=== PATIENT | female | born 1990 | race Caucasian/White ===

== ENCOUNTER 2016-06-15 20:50 | Emergency (ER) | payer MEDICAID ==
[~2016-06-15] VITALS: Ht 157.5 cm; Wt 55.3 kg
[~2016-06-15 20:50] MED LIST: CLIN300C86 PO; ESCI10TA47 PO; HYDR-4074 PO; IBUP-1547 PO; OXYC1TAB66 PO
--- OUTSIDE RECORDS SUMMARY | 2016-06-15 20:55 | XMS REPORT | Continuity of Care Document ---
Author Author [facility] Address Unknown Phone Unavailable Allergies Medications Problems Date Dx Coded Attending Type Code Diagnosis Diagnosed By 06/26/2015 MELISSA LAUREANO LMSW THERAPIST, [place] 296.80 Bipolar Disorder NOS Procedures Results Encounters ACCT No. Visit Date/Time Discharge Status Pt. Type Provider Facility Loc./Unit Complaint [id number] 06/26/2015 00:00:00 10/27/2015 00: 00:00 DIS Outpatient MELISSA LAUREANO LMSW THERAPISTKELLY
--- OUTSIDE RECORDS SUMMARY | 2016-06-15 20:55 | XMS REPORT | Continuity of Care Document ---
Author Author [facility] Organization [facility] Address Unknown Phone Unavailable Support Name Relationship Address Phone ROGER BARRY MD Caregiver [address] [place] [phone] NORAH BALLESTEROS MD Caregiver [address] [place] [address] ESTEBNA BYNUM Next Of Kin [address] [place] [address] C Insurance Providers Payer Name Policy Number Subscriber Name Relationship Self Pay Lynda Bynum 16 Self Problems Medical Problems Problem Onset Date Status contusions--scalp, left arm, right ribs Unknown Active Pharyngitis Unknown Active ABSCESS L ARM Unknown Active Toothache Unknown Active Medications Medication Dose Route Sig Days/Qty Instructions Order Date Discontinued Date Status [Bc] 07/28/09 09/03/10 Discontinued [Norplant] ID 01/14/10 09/03/10 Discontinued Hydrocodone Bit/Acetaminophen NEEDED 01/15/10 09/03/10 Discontinued [Bc Implant] 07/05/10 01/07/13 Discontinued Amoxicillin 1 Cap PO THREE TIMES A DAY 10 Days 12/14/13 Active [No Know Meds] 12/14/13 Active Social History Social History Problem Response Recorded Date/Time Smoking Status Current every day smoker 12/14/2013 9:24pm When did patient START smoking? 2004 12/14/2013 9:24pm Hx Substance Use Y meth and cocaine; NONE X6 MONTHS 12/14/2013 9:24pm Hx Alcohol Use No 12/14/2013 9:24pm Query Response Start Date Stop Date Smoking Status Current every day smoker Hospital Discharge Instructions No hospital discharge instructions. Plan of Care No plan of care. Functional Status Query Response Date Recorded Physical Hygiene Self December 14, 2013 9:24pm Disabilities None December 14, 2013 9:24pm Devices Used None December 14, 2013 9:24pm Dressing Self December 14, 2013 9:24pm Ambulation Self December 14, 2013 9:24pm Diet Self December 14, 2013 9:24pm Mental Status Alert Oriented December 14, 2013 9:24pm Disabilities None December 14, 2013 9:24pm Devices Used None December 14, 2013 9:24pm Physical Hygiene Self December 14, 2013 9:24pm Dressing Self December 14, 2013 9:24pm Ambulation Self December 14, 2013 9:24pm Diet Self December 14, 2013 9:24pm Allergies, Adverse Reactions, Alerts Allergen Type Severity Reaction Status Last Updated diphenhydramine HCl Allergy Mild ITCHING Active 12/14/13 Penicillin Allergy Mild RASH Active 12/14/13 Morphine Allergy Mild ITCHING Active 12/14/13 Immunizations Name Given Type Hx Influenza Vaccination No Historical Hx Pneumococcal Vaccination No Historical Hx Tetanus, Diptheria, Pertussis Y 4 YEARS AGO Historical Hx Influenza Vaccination No Historical Hx Tetanus, Diptheria, Pertussis Y 4 YEARS AGO Historical Vital Signs Acute Vital Signs Vital Response Date/Time Temperature (Fahrenheit) 97.3 deg F (96.8 - 99.1) Temperature (Calculated Celsius) 36.35237 degrees C (36.0 - 37.3) Pulse Rate (adult) 64 bpm (60 - 100) Respiratory Rate 16 breaths/min (10 - 20) O2 Sat by Pulse Oximetry 98 % (90 - 100) Blood Pressure 113/67 mm Hg Height 5 ft 2 in Weight 155 lb Body Mass Index 28.0 kg/m^2 Results Test Source Date Result Interp. Ref. Range Comments Acetaminophen Level October 12, 2012 2:50am < 10 UG/ML L 10-30 TOXIC <4 HR POST INGESTION: >150 MG/L;TOXIC <12 HR POST INGESTION: >50 MG/L Alanine Aminotransferase (ALT/SGPT) October 12, 2012 2:50am 34 U/L N 9 -52 Albumin October 12, 2012 2:50am 4.0 G/DL N 3.5-5.0 Albumin/Globulin Ratio October 12, 2012 2:50am 1.5 RATIO N 1.1-2.2 Alcohol, Quantitative October 12, 2012 2:50am <10 MG/DL - Alkaline Phosphatase October 12, 2012 2:50am 85 U/L N 38-126 Amylase Level February 01, 2011 5:14pm 63 U/L N 30-110 Anion Gap December 30, 2012 12:25am 14 MEQ/L N 5-15 Aspartate Amino Transf (AST/SGOT) October 12, 2012 2:50am 23 U/L N 14- 36 B-Type Natriuretic Peptide September 03, 2010 4:35pm < 15 PG/ML L 15-100 BUN/Creatinine Ratio December 30, 2012 12:25am 28 RATIO H 6-26 Band Neutrophils # January 14, 2010 8:15pm 0.1 T/MM3 - Band Neutrophils % January 14, 2010 8:15pm 1.0 % N 0-6 Basophils # (Auto) October 12, 2012 2:50am 0.0 T/MM3 N 0-0.2 Basophils (%) (Auto) October 12, 2012 2:50am 0.3 % N 0-2 Blood Urea Nitrogen December 30, 2012 12:25am 17.0 MG/DL N 7-17 Calcium Level December 30, 2012 12:25am 9.4 MG/DL N 8.4-10.2 Calculated Osmolality December 30, 2012 12:25am 278 MOSM/KG N 261-280 Carbon Dioxide Level December 30, 2012 12:25am 31 MEQ/L H 22-30 Chloride Level December 30, 2012 12:25am 99 MEQ/L N 98-107 Conjugated Bilirubin February 01, 2011 5:14pm 0.00 MG/DL N 0.00-0.30 Creatinine December 30, 2012 12:25am 0.6 MG/DL L 0.7-1.2 D-Dimer September 03, 2010 8:04pm < 150 NG/ML 0-230 <224 NG/ML= PRESUMPTIVE NEGATIVE FOR PE OR DVT>224 NG/ML=ADDITIONAL EVALUATION FOR PE OR DVT RECOMMENDED Differential Total Cells Counted January 14, 2010 8:15pm 100 % - Eosinophils # (Auto) October 12, 2012 2:50am 0.5 T/MM3 N 0-0.5 Eosinophils # (Manual) December 30, 2012 12:25am 0.5 T/MM3 N 0-0.5 Eosinophils % (Manual) December 30, 2012 12:25am 4.0 % N 0-4 Eosinophils (%) (Auto) October 12, 2012 2:50am 4.1 % H 0-4 Globulin October 12, 2012 2:50am 2.6 G/DL N 2.4-3.6 Glucose Level December 30, 2012 12:25am 85 MG/DL N 65-110 Group A Streptococcus Screen May 06, 2011 12:05am Negative - Strep culture confirmation to follow Hematocrit December 30, 2012 12:25am 39.7 % N 36-46 Hemoglobin December 30, 2012 12:25am 13.9 GM/DL N 12-16 Human Chorionic Gonadotropin, Qual January 28, 2013 10:40am Negative - Lipase October 12, 2012 2:50am 87 U/L N 23-300 Lymphocytes # (Auto) October 12, 2012 2:50am 5.0 T/MM3 H 1-4.8 Lymphocytes # (Manual) December 30, 2012 12:25am 3.6 T/MM3 N 1-4.8 Lymphocytes % (Manual) December 30, 2012 12:25am 31.0 % N 23-45 Lymphocytes (%) (Auto) October 12, 2012 2:50am 42.8 % N 23-45 Magnesium Level October 12, 2012 2:50am 1.8 MG/DL N 1.6-2.3 Mean Corpuscular Hemoglobin December 30, 2012 12:25am 29.6 UUG N 26-34 Mean Corpuscular Hemoglobin Concent December 30, 2012 12:25am 35.0 GM/DL N 31-37 Mean Corpuscular Volume December 30, 2012 12:25am 84.5 UM3 N 80-100 Mean Platelet Volume December 30, 2012 12:25am 10.0 UM3 N 9.4-12.4 Monocytes # (Auto) October 12, 2012 2:50am 0.8 T/MM3 N 0-0.8 Monocytes # (Manual) December 30, 2012 12:25am 0.7 T/MM3 N 0-0.8 Monocytes % (Manual) December 30, 2012 12:25am 6.0 % N 0-9.0 Monocytes (%) (Auto) October 12, 2012 2:50am 7.0 % N 0-9.0 Monoscreen December 30, 2012 12:25am Negative - Neutrophils # (Auto) October 12, 2012 2:50am 5.3 T/MM3 N 1.8-7.7 Neutrophils # (Manual) December 30, 2012 12:25am 6.9 T/MM3 N 1.8-7.7 Neutrophils % (Manual) December 30, 2012 12:25am 59.0 % N 33-66 Neutrophils (%) (Auto) October 12, 2012 2:50am 45.4 % N 33-66 Platelet Count December 30, 2012 12:25am 350 T/MM3 N 130-400 Potassium Level December 30, 2012 12:25am 4.2 MEQ/L N 3.6-5 RDW Standard Deviation December 30, 2012 12:25am 40.8 FL N 36.9-50.2 Red Blood Count December 30, 2012 12:25am 4.70 M/MM3 N 4.00-5.20 Salicylates Level October 12, 2012 2:50am < 1.0 MG/DL L 2-20 Sodium Level December 30, 2012 12:25am 144 MEQ/L N 134-144 Total Bilirubin October 12, 2012 2:50am 1.00 MG/DL N 0.20-1.30 Total Protein October 12, 2012 2:50am 6.6 G/DL N 6.3-8.2 Troponin I May 06, 2011 12:20am < 0.012 ng/ml 0-0.12 Unconjugated Bilirubin February 01, 2011 5:14pm 0.80 MG/DL N 0.00-1.10 Urine Amphetamines Screen October 12, 2012 5:45am Positive NG/ML - Urine Bacteria October 12, 2012 5:45am 2+ H - Has specimen been collected/obtained? Y Urine Barbiturates Screen October 12, 2012 5:45am Negative NG/ML - Urine Benzodiazepines Screen October 12, 2012 5:45am Negative NG/ML - Urine Bilirubin October 12, 2012 5:45am Negative - Has specimen been collected/obtained? Y Urine Blood October 12, 2012 5:45am Negative - Has specimen been collected/obtained? Y Urine Cocaine Screen October 12, 2012 5:45am Negative NG/ML - Urine Collection Type October 12, 2012 5:45am Voided-not cc-midstr - Has specimen been collected/obtained? Y Urine Color October 12, 2012 5:45am Yellow - Has specimen been collected/obtained? Y Urine Culture Indicated October 12, 2012 5:45am Cult reflexed &setup - Has specimen been collected/obtained? Y Urine Drug Screen Confirmation October 12, 2012 6:06am Sent out - Urine Drug Screen Other April 13, 2011 4:35pm Sent out - Urine Glucose (UA) October 12, 2012 5:45am Negative - Has specimen been collected/obtained? Y Urine Ketones October 12, 2012 5:45am Negative - Has specimen been collected/obtained? Y Urine Leukocyte Esterase October 12, 2012 5:45am Negative - Has specimen been collected/obtained? Y Urine Methamphetamines Screen May 05, 2011 11:50pm Negative NG/ML - Urine Mucus October 12, 2012 5:45am Present - Has specimen been collected/obtained? Y Urine Nitrite October 12, 2012 5:45am Negative - Has specimen been collected/obtained? Y Urine Opiates Screen October 12, 2012 5:45am Negative NG/ML - Urine Phencyclidine Screen May 05, 2011 11:50pm Negative NG/ML - Urine Test May 05, 2011 11:50pm Negative - Has specimen been collected/obtained? Y Urine Protein October 12, 2012 5:45am Trace H - Has specimen been collected/obtained? Y Urine RBC October 12, 2012 5:45am 1-3 /HPF - Has specimen been collected/obtained? Y Urine Specific [place] October 12, 2012 5:45am 1.025 - Has specimen been collected/obtained? Y Urine Squamous Epithelial Cells October 12, 2012 5:45am 20-50 - Has specimen been collected/obtained? Y Urine Trichomonas June 05, 2011 1:00pm Present - MANY Urine Tricyclic Antidepressants October 12, 2012 5:45am Negative NG/ML - Urine Turbidity October 12, 2012 5:45am Slt cldy - Has specimen been collected/obtained? Y Urine Urobilinogen October 12, 2012 5:45am 4 EU/DL H - Has specimen been collected/obtained? Y Urine WBC October 12, 2012 5:45am 5-10 /HPF H - Has specimen been collected/obtained? Y Urine pH October 12, 2012 5:45am 5.0 - Has specimen been collected/ obtained? Y White Blood Count December 30, 2012 12:25am 11.7 T/MM3 H 4.5-11.0 Lab Scanned Report July 30, 2013 6:36pm LAB TEST FORM REQUEST [id number] - Urine Methadone Screen October 12, 2012 5:45am Negative NG/ML - Urine Cannabinoids Screen October 12, 2012 5:45am Negative NG/ML - Glomerular Filtration Rate Calc December 30, 2012 12:25am 123 - Immature Granulocyte # (Auto) October 12, 2012 2:50am 0.05 T/MM3 H 0.00-0.03 Immature Granulocyte % (Auto) October 12, 2012 2:50am 0.4 % N 0.0-0.5 Membranes Rupture (PAMG-1) May 16, 2009 7:49pm Negative - Urine Acetaminophen Screen May 05, 2011 11:50pm Negative NG/ML - Blood Culture Blood July 15, 2010 10:25pm NO GROWTH AFTER 5 DAYS Group A Streptococcus Culture Throat May 06, 2011 12:16am Streptococcus Group C Urine Culture Urine, Voided-Not Cc-Midstream October 12, 2012 6:56am Diphtheroid Bacillus Gram Stain Abscess January 07, 2013 11:20am Procedures No known history of procedures. Encounters Encounter Location Date/Time Departed Emergency Room [facility] 12/14/13 8:47pm Recent Diagnosis
[2016-06-15 21:03] VITALS: Ht 157.5 cm; Wt 55.3 kg
--- NOTE | 2016-06-15 21:03 | NUR ---
STATUS PT'S NAME IS CALLED FOR ROOM PLACEMENT, PT IS NOT PRESENT IN THE LOBBY.
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
--- OUTSIDE RECORDS SUMMARY | 2016-06-15 22:07 | XMS REPORT | Continuity of Care Document ---
Author [facility] Address Unknown Phone Unavailable Allergies Medications Problems Date Dx Coded Attending Type Code Diagnosis Diagnosed By 06/26/2015 MELISSA LAUREANO LMSW THERAPIST, [place] 296.80 Bipolar Disorder NOS Procedures Results Encounters ACCT No. Visit Date/Time Discharge Status Pt. Type Provider Facility Loc./Unit Complaint [id number] 06/26/2015 00:00:00 10/27/2015 00: 00:00 DIS Outpatient MELISSA LAUREANO LMSW THERAPISTKELLY
--- OUTSIDE RECORDS SUMMARY | 2016-06-15 22:07 | XMS REPORT | Continuity of Care Document ---
Author Author [facility] L[facility] Organization [facility] Address Unknown Phone Unavailable Support Name Relationship Address Phone ROGER BARRY MD Caregiver [address] [place] [phone] NORAH BALLESTEROS MD Caregiver [address] [place] [address] ESTEBAN BYNUM Next Of Kin [address] [place] [address] C Insurance Providers Payer Name [...] F (96.8 - 99.1) Temperature (Calculated Celsius) 36.39104 degrees C (36.0 - 37.3) Pulse Rate [...] Has specimen been collected/obtained? Y Urine Specific [place] October 12, 2012 5:45am 1.025 - Has [...] 30, 2013 6:36pm LAB TEST FORM REQUEST [id number] - Urine Methadone Screen October 12, 2012 [...] Encounters Encounter Location Date/Time Departed Emergency Room [facility] 12/14/13 8:47pm Recent Diagnosis
[2016-06-15] MEDS ORDERED: No Routine Meds (22:56)
[2016-06-16] MEDS ORDERED: HYDROCODONE/APAP 5/325 (PrePack) SENT HOME ONE
[2016-06-16] MEDS ORDERED: CEPHALEXIN 500 MG CAPSULE PO ONE
[2016-06-16] MEDS ORDERED: BUPIVACAINE 0.5% (5mg/ml) 30ml INJ SDV INFIL ONE
[2016-06-16] MEDS ORDERED: CEPH500T PO (00:06)
[2016-06-16 00:20] VITALS: BP 124/71; PULSE 89; RESP 16; TEMP 98.4; O2SAT 96
--- NOTE | 2016-06-16 09:05 | DI ---
EXAM: FINGERS LEFT 2 VIEW MIN COMPARISON: None available. HISTORY: ITS.REASON: crush injury left index . FINDINGS: There is a nondisplaced transverse fracture through the proximal aspect of the tuft of the distal phalanx of the second digit at the distal metaphysis. The articulating surfaces are smooth. No other osseous abnormality is identified. IMPRESSION: Nondisplaced transverse fracture through the proximal aspect of the tuft of the distal phalanx of the second digit. LOCATION OF DICTATION: [facility] .
== END 2016-06-16 00:20 | disposition home or self-care (01) ==
LOC: ED 20:50
DX: S67.191A Crushing injury of left index finger, initial encounter (principal); S62.661B Nondisplaced fracture of distal phalanx of left index finger, initial encounter for open fracture; W23.0XXA Caught, crushed, jammed, or pinched between moving objects, initial encounter; Y93.9 Activity, unspecified; Y92.008 Other place in unspecified non-institutional (private) residence as the place of occurrence of the external cause; Y99.8 Other external cause status
CPT/HCPCS: 12001; 29130; 73140; 99283; S0020